=== PATIENT | female | born 1970 | race African-American/Black ===

== ENCOUNTER 2018-06-19 16:05 | Emergency (ER) | payer SELFPAY ==
[~2018-06-19] VITALS: Ht 165.1 cm; Wt 108.8 kg
[2018-06-19 17:17] LABS: CHLORIDE 104 mEq/L (99-109); HEMOGLOBIN 12.4 G/DL (11.9-15.5); MCH 25.1 PG (29.0-34.0); MCHC 33.5 G/DL (30.0-36.0); MCV 74.7 FL (83-99); PLATELET COUNT 256 K/uL (156-360); POTASSIUM 4.4 mEq/L (3.7-5.4); RBC DIS.WIDTH-CV 16.4 % (11.8-14.6); RED BLOOD COUNT 4.95 M/uL (3.80-5.20); SODIUM 136 mEq/L (136-147); WHITE BLOOD COUNT 7.2 K/uL (4.1-10.2)
[2018-06-19 17:19] LABS: GLUCOSE 337 mg/dL (70-99)
[2018-06-19 17:23] LABS: CREATININE 0.8 mg/dL (0.6-1.3)
[2018-06-19 17:24] LABS: UREA NITROGEN (BUN) 9 mg/dL (9-23)
[2018-06-19 17:26] LABS: GFR ESTIMATE (CALCULATED) > 59 mL/min/
[2018-06-19 17:27] LABS: TROP-I INTERPRETATION NEGATIVE; TROPONIN-I < 0.01 ng/mL (0.0-0.30)
[2018-06-19 20:31] LABS: TROP-I INTERPRETATION NEGATIVE; TROPONIN-I < 0.01 ng/mL (0.0-0.30)
[2018-06-19 20:47] VITALS: BP 112/76
== END 2018-06-19 20:50 | disposition home or self-care (01) ==
LOC: EME 16:05
PROVIDERS: Nurse Practitioner Family
DX: R07.89 Other chest pain (principal); E11.9 Type 2 diabetes mellitus without complications; Z79.4 Long term (current) use of insulin; J45.909 Unspecified asthma, uncomplicated; F17.200 Nicotine dependence, unspecified, uncomplicated; Z90.49 Acquired absence of other specified parts of digestive tract; Z88.1 Allergy status to other antibiotic agents
CPT/HCPCS: 71046; 80048; 84484; 85027; 93005; 99281; 99284